=== PATIENT | female | born 2000 | race Caucasian/White ===

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

== ENCOUNTER 2020-08-30 07:15 | Emergency (ER) | payer SELFPAY ==
--- NOTE | 2020-08-30 07:42 | EDM.PDOC ---
ED HPI GENERAL MEDICAL PROBLEM - General Stated Complaint: CUT ON FOREHEAD Time Seen by Provider: 08/30/20 07:30 Source of Information: Reports: Patient, RN, RN Notes Reviewed History Limitations: Reports: No Limitations - History of Present Illness INITIAL COMMENTS - FREE TEXT/NARRATIVE: Pt to ER with c/o laceration to the left side of the forehead. Patient states she hit her head on a car door this morning. States she was not knocked out, does not have a headache, and has no visual disturbances. Onset: Today, Sudden Chest Pain Score (Numeric/FACES): 5 - Related Data Allergies Allergy/AdvReac Type Severity Reaction Status Date / Time codeine [From Guaiatussin AC] Allergy Nausea Verified 09/12/19 18:48 [email or web address] Allergy Nausea Verified 09/12/19 18:48 [From Guaiatussin AC] Home Meds: Home Meds Hydrocort/Neomycin/Polymyxin B [Cortisporin Ophth Susp] 2 drop OP Q3H 7 Days #1 bottle 09/12/19 [Rx] Past Medical History Respiratory History: Reports: Asthma Psychiatric History: Reports: Anxiety Dermatologic History: Reports: Eczema ED ROS GENERAL - Review of Systems Review Of Systems: Comprehensive ROS is negative, except as noted in HPI. ED EXAM, SKIN/RASH Exam: See Below Exam Limited By: No Limitations General Appearance: Alert, WD/WN, No Apparent Distress Eye Exam: Bilateral Eye: EOMI, Normal Inspection Ears: Normal External Exam, Hearing Grossly Normal Nose: Normal Inspection Throat/Mouth: Normal Inspection, Normal Voice, No Airway Compromise Head: Normocephalic, Facial Tenderness (contusion to the left side of the forehead with a 2cm subcutaneous laceration in the center. ) Neck: Normal Inspection Respiratory/Chest: No Respiratory Distress, Lungs Clear, Normal Breath Sounds, No Accessory Muscle Use, Chest Non-Tender Cardiovascular: Normal Peripheral Pulses, Regular Rate, Rhythm, No Edema, No Gallop, No JVD, No Murmur, No Rub Peripheral Pulses: 2+: Radial (L), Radial (R) GI/Abdominal: Normal Bowel Sounds, Soft, Non-Tender (Female) Exam: Deferred Rectal (Female) Exam: Deferred Back Exam: Normal Inspection, Full Range of Motion, NT Extremities: Normal Inspection, Normal Range of Motion, Non-Tender, No Pedal Edema, Normal Capillary Refill Neurological: Alert, Oriented, CN II-XII Intact, Normal Cognition, Normal Gait, Normal Reflexes, No Motor/Sensory Deficits Psychiatric: Normal Affect, Normal Mood Skin: Warm, Dry, Normal Color, No Rash, Other (Contusion and 2cm subcutaneous laceration to the left forehead) Location, Skin: Head, Face Lymphatic: No Adenopathy ED SKIN PROCEDURES - Laceration/Wound Repair Left Forehead Appearance: Superficial Distal NVT: Neuro & Vascular Intact Skin Prep: Chlorhexidine (Hibiciens) Exploration/Debridement/Repair: Wound Explored, In a Bloodless Field Closed with: Dermabond Lac/Wound length In cm: 2 Drain Placement: No Sterile Dressing Applied: None Tetanus Status Addressed: Yes Complications: No Course - Vital Signs Last Recorded V/S: Last Vital Signs Temp 98 F 08/30/20 07:20 Pulse 79 08/30/20 07:20 Resp 16 08/30/20 07:20 BP 122/79 08/30/20 07:20 Pulse Ox 99 08/30/20 07:20 - Orders/Labs/Meds Meds: Medications Discontinued Medications Generic Name Dose Route Start Last Admin Trade Name Freq PRN Reason Stop Dose Admin Diphtheria/Tetanus/Acell Pertussis 0.5 ml 08/30/20 07:55 08/30/20 08:02 Adacel IM 08/30/20 07:56 0.5 ml .ONCE ONE Administration Departure - Departure Time of Disposition: 07:53 Disposition: Home, Self-Care 01 Condition: Good Clinical Impression: Laceration Contusion Qualifiers: Encounter type: initial encounter Contusion area: head Contusion of head detail: other part of head Qualified Code(s): S00.83XA - Contusion of other part of head, initial encounter - Discharge Information *PRESCRIPTION DRUG MONITORING PROGRAM REVIEWED*: No *COPY OF PRESCRIPTION DRUG MONITORING REPORT IN PATIENT MARKUS: No Instructions: Contusion, [id number], Laceration Care, Adult, [id number], Sutures, Payal, or Adhesive Wound Closure, [id number], Tissue Adhesive Wound Care, [id number] Additional Instructions: Keep area clean and dry Do not pick at the glue, let it fall off on its own Follow up with your primary care facility if no improvement May use Tylenol and/or Ibuprofen as directed for pain Sepsis Event Note (ED) - Focused Exam Vital Signs: Vital Signs Temp Pulse Resp BP Pulse Ox 08/30/20 07:20 98 F 79 16 122/79 99
[2020-08-30] MEDS ORDERED: Diphtheria,Pertussis(Acell),Tetanus Vaccine 0.5 ML Syringe IM ONE (07:55)
== END 2020-08-30 08:05 | disposition home or self-care (01) ==
LOC: VM.ED 07:15
DX: S01.81XA Laceration without foreign body of other part of head, initial encounter (principal); J45.909 Unspecified asthma, uncomplicated; Z23 Encounter for immunization; Z88.5 Allergy status to narcotic agent; Z88.8 Allergy status to other drugs, medicaments and biological substances; W22.8XXA Striking against or struck by other objects, initial encounter
CPT/HCPCS: 12011; 90471; 90715; 99282-25

== ENCOUNTER 2021-01-14 19:32 | Emergency (ER) | payer MEDICAID, SELFPAY ==
[2021-01-14] MEDS ORDERED: Dexamethasone 4 MG/ML 5 ML MDV PO ONE (19:54)
[2021-01-14] MEDS ORDERED: Albuterol/Ipratropium 3.0-0.5 MG/3 ML Neb Soln NEB ONE (19:54)
--- NOTE | 2021-01-14 20:08 | EDM.PDOC ---
ED HPI GENERAL MEDICAL PROBLEM - General Chief Complaint: Respiratory Problem Stated Complaint: SOB Time Seen by Provider: 01/14/21 19:54 Source of Information: Reports: Patient - History of Present Illness INITIAL COMMENTS - FREE TEXT/NARRATIVE: To is a 20 y/o female who presents to the ER with an exacerbation of her asthma. She reports that he sx started this AM and she has been using her inhaler more frequently today. No fever. No other resp sx, just more SOB today. - Related Data Allergies Allergy/AdvReac Type Severity Reaction Status Date / Time codeine [From Guaiatussin AC] Allergy Nausea Verified 09/12/19 18:48 [email or web address] Allergy Nausea Verified 09/12/19 18:48 [From Guaiatussin AC] Home Meds: Home Meds Hydrocort/Neomycin/Polymyxin B [Cortisporin Ophth Susp] 2 drop OP Q3H 7 Days #1 bottle 09/12/19 [Rx] Albuterol Sulfate [Albuterol Sulfate Hfa] 2 inh IH Q4HR PRN #18 [email or web address] 01/14/21 [Rx] methylPREDNISolone [Medrol] 4 mg PO ASDIRECTED #21 dospk 01/14/21 [Rx] Past Medical History HEENT History: Reports: Allergic Rhinitis Respiratory History: Reports: Asthma Psychiatric History: Reports: Anxiety Dermatologic History: Reports: Eczema ED ROS GENERAL - Review of Systems Review Of Systems: See Below Constitutional: Reports: No Symptoms HEENT: Reports: No Symptoms Respiratory: Reports: Shortness of Breath, Wheezing. Denies: Cough Cardiovascular: Reports: No Symptoms Endocrine: Reports: No Symptoms GI/Abdominal: Reports: No Symptoms : Reports: No Symptoms Musculoskeletal: Reports: No Symptoms Skin: Reports: No Symptoms Neurological: Reports: No Symptoms Psychiatric: Reports: No Symptoms Hematologic/Lymphatic: Reports: No Symptoms Immunologic: Reports: No Symptoms ED EXAM, GENERAL - Physical Exam Exam: See Below Exam Limited By: No Limitations General Appearance: Alert, WD/WN, No Apparent Distress (Young adult female. Able to answer questions, although mildly SOB.) Ears: Normal External Exam, Normal Canal, Hearing Grossly Normal, Normal TMs Nose: Normal Inspection, Normal Mucosa Throat/Mouth: Normal Inspection, Normal Lips, Normal Teeth, Normal Voice Head: Atraumatic, Normocephalic Neck: Supple Respiratory/Chest: No Accessory Muscle Use, Wheezing (Mild, and coarsensss throughout) Cardiovascular: Normal Peripheral Pulses, Regular Rate, Rhythm, No Edema, No Murmur GI/Abdominal: Normal Bowel Sounds, Soft, Non-Tender (Female) Exam: Deferred Rectal (Female) Exam: Deferred Back Exam: Normal Inspection, Full Range of Motion Extremities: Normal Inspection, No Pedal Edema, Normal Capillary Refill Neurological: Alert, Oriented, CN II-XII Intact, Normal Gait, No Motor/Sensory Deficits Psychiatric: Normal Affect, Normal Mood Skin Exam: Warm, Dry, Intact, Normal Color Lymphatic: No Adenopathy Course - Vital Signs Text/Narrative:: 1953 The patient was seen by the [facility]. She was given a Duoneb and Decadron 8mg po x 1 dose. 2044 Patient feeling better, breathing easier. Wheezing decreased and lungs not as coarse. Will discharge to home with Medrol DosePack and Albuterol. Patient r eported to [facility] that she uses her rescue inhaler about 3-4x/week. Will send patient home on Medrol Dosepack, but advised that she follow up with her PCP to discuss possible inhaled steroid use. She was given written instructions and left the ER in stable condition. - Orders/Labs/Meds Orders: Active Orders 24 hr Category Date Time Status RT Aerosol Therapy [RC] ASDIRECTED Care 01/14/21 19:55 Active Meds: Medications Discontinued Medications Generic Name Dose Route Start Last Admin Trade Name Freq PRN Reason Stop Dose Admin Albuterol/Ipratropium 3 ml 01/14/21 19:54 Duoneb 3.0-0.5 Mg/3 Ml NEB 01/14/21 19:55 ONETIME ONE Dexamethasone 8 mg 01/14/21 19:54 Dexamethasone PO 01/14/21 19:55 ONETIME ONE Departure - Departure Time of Disposition: 20:45 Disposition: Home, Self-Care 01 Condition: Good Clinical Impression: Acute asthma - Discharge Information Prescriptions: Albuterol Sulfate [Albuterol Sulfate Hfa] 2 inh IH Q4HR PRN #18 hfa.aer.ad PRN Reason: Shortness Of Breath methylPREDNISolone [Medrol] 4 mg PO ASDIRECTED #21 dospk Instructions: Asthma, Adult, [id number] Additional Instructions: -Medrol Dose Pack 4 mg oral As Directed #21 (Rx) -Albuterol HFA inhaler 2 puffs every 4 hours as needed for wheezing, shortness or breath, or cough #8.5gm (Rx) -Follow up with your PCP to discuss further asthma meds -Return to the ER if you have further concerns or follow up in Outpatient Department - My Orders Last 24 Hours: My Active Orders 01/14/21 19:55 RT Aerosol Therapy [RC] ASDIRECTED - Assessment/Plan Last 24 Hours: My Active Orders 01/14/21 19:55 RT Aerosol Therapy [RC] ASDIRECTED Assessment:: 1)Asthma Exacerbation
[2021-01-14] MEDS ORDERED: Dexamethasone 4 MG/ML SDV ONE (20:16)
== END 2021-01-14 20:52 | disposition home or self-care (01) ==
LOC: VM.ED 19:32
DX: J45.901 Unspecified asthma with (acute) exacerbation (principal); Z88.5 Allergy status to narcotic agent; Z79.899 Other long term (current) drug therapy
CPT/HCPCS: 94640; 99283; 99284-25; J1100; J7620-GY

== ENCOUNTER 2024-09-21 09:48 | Emergency (ER) | payer OTHER ==
[2024-09-21] MEDS ORDERED: Sodium Chloride 0.9% 10 ML Syringe FLUSH PRN (09:51)
[2024-09-21] MEDS ORDERED: Naloxone 0.4 MG/ML SDV IVPUSH PRN (09:52)
[2024-09-21] MEDS: Sodium Chloride 0.9% 1,000 ML IV ONE (09:58)
[2024-09-21] MEDS: Ondansetron 4 MG/2 ML SDV IVPUSH ONE (09:59)
[2024-09-21] MEDS: fentaNYL 50 MCG/ML SDV IVPUSH ONE (10:00)
[2024-09-21 10:03] LABS: BASOPHILS PERCENT AUTO 0.4 % (0.2-1.2); EOSINOPHILS ABSOLUTE AUTO 0.2 x10^3/uL (0.0-0.5); EOSINOPHILS PERCENT AUTO 2.1 % (0.0-4.0); HEMOGLOBIN 14.8 g/dL (12.0-16.0); IMMATURE GRAN ABSOLUTE AUTO 0.01 x10^3/uL (0.00-0.07); LYMPHOCYTES PERCENT AUTO 22.4 % (25.0-50.0); MEAN CORPUSCULAR HEMOGLOBIN 26.9 pg (26.0-32.0); MEAN CORPUSCULAR HGB CONC 33.6 g/dL (32.0-36.0); MONOCYTES ABSOLUTE AUTO 0.4 x10^3/uL (0.0-0.8); MONOCYTES PERCENT AUTO 3.9 % (2.0-11.0); NEUTROPHILS ABSOLUTE AUTO 6.4 x10^3/uL (1.8-7.7); NEUTROPHILS PERCENT AUTO 71.1 % (50.0-80.0); PLATELET COUNT,PLT 304 x10^3/uL (130-400); WHITE BLOOD CELL COUNT,WBC 8.9 x10^3/uL (4.0-10.0)
[2024-09-21 10:18] LABS: PROTHROMBIN TIME 9.8 SEC (8.9-11.5)
[2024-09-21 10:23] LABS: A/G RATIO 0.81; ALANINE AMINOTRANSFERASE,ALT 12 U/L (14-59); ALBUMIN 3.4 g/dL (3.4-5.0); ALKALINE PHOSPHATASE 133 U/L (46-116); ANION GAP 14.8 mmol/L (5-15); ASPARTATE AMNIOTRANSFERASE,AST 16 U/L (15-37); BILIRUBIN TOTAL 0.3 mg/dL (0.2-1.0); BLOOD UREA NITROGEN,BUN 12 mg/dL (7-18); CARBON DIOXIDE,CO2 25 mmol/L (21-32); CHLORIDE,CL 103 mmol/L (98-107); CREATININE 0.9 mg/dL (0.55-1.02); ESTIMATED GFR 92 mL/min (>=60); GLUCOSE RANDOM 117 mg/dL (70-99); POTASSIUM,K 3.8 mmol/L (3.5-5.1); PROTEIN TOTAL,TP 7.6 g/dL (6.4-8.2); SODIUM,NA 139 mmol/L (136-145)
[2024-09-21] MEDS: HYDROmorphone 0.5 MG/0.5 ML Syringe IVPUSH ONE (10:56)
== END 2024-09-21 11:22 | disposition short-term general hospital (02) ==
LOC: VM.ED 09:48
DX: S82.891A Other fracture of right lower leg, initial encounter for closed fracture (principal); J45.909 Unspecified asthma, uncomplicated; Z88.5 Allergy status to narcotic agent; Z88.8 Allergy status to other drugs, medicaments and biological substances; V89.2XXA Person injured in unspecified motor-vehicle accident, traffic, initial encounter
CPT/HCPCS: 36415; 71045; 72170; 73560-RT; 73600-RT; 80053; 85025; 85610; 99284; J1171; J2405; J3010; J7030